=== PATIENT | female | born 1935 | race American Indian/Alaskan Native ===

== ENCOUNTER 2016-09-06 08:53 | Inpatient (IN) | payer OTHER ==
[~2016-09-06] VITALS: Ht 154.9 cm; Wt 56.1 kg
[~2016-09-06 08:53] MED LIST: ACET-1757 PO; ALBU1.25 NEB; ALBU8.5H3 INH; ASPI325T4 PO; ATOR40TA78 PO; BISA10SU2 PR; CALC-451 PO; CALCIUM; CEFD300C37 PO; CHOL2000 PO; CIPR500T87 PO; DIPH25CA61 PO; DOXY100T PO; ETOMIDATE 20 MG/10 ML ONE; FLUT1AER INH; GUAI5SYR PO; HYDR-3138 PO; IBUP-1 PO; IPRA3AMP NPPB; LEVO25TA2 PO; LEVO50TA5 PO; LISI-170 PO; LISINOPRIL; LORA10TA62 PO; LORADINE; MAGN400T26 PO; MIDAZOLAM 1 MG/ML, 5ML ONE; MONT10TA9 PO; OMEG500C3 PO; POLY17PO5 PO; PRED20TA PO; PRED5TAB19 PO; PROM25VI5 IM; PROPOFOL 10 MG/ML, 100ML IV ONE; SUCCINYLCHOLINE 20 MG/ML, 10ML ONE; THYROID MED; VECURONIUM 10 MG ONE
[2016-09-06] MEDS ORDERED: SODIUM CHLORIDE 0.9% 1,000 ML IV ONE (09:08)
[2016-09-06] MEDS ORDERED: ALBUTEROL SULFATE 2.5MG/0.5ML ONE (09:19)
[2016-09-06] MEDS ORDERED: IPRATROPIUM 0.5 MG/2.5 ML INHA ONE (09:19)
[2016-09-06] MEDS ORDERED: methylPREDNISolone SOD SUCC 125 MG/2 ML ONE ×2 (09:21→12:50)
[2016-09-06] MEDS ORDERED: ACETAMINOPHEN 650 MG SUPP ONE (09:21)
[2016-09-06] MEDS ORDERED: SODIUM CHLORIDE 0.9% 1,000ML IVBOLUS ONE ×3 (09:30→17:30)
[2016-09-06] MEDS ORDERED: ALBUTEROL 0.5%, 20ML NPPB SCH (09:30)
[2016-09-06] MEDS ORDERED: ACETAMINOPHEN 650 MG SUPP PR ONE (09:30)
[2016-09-06] MEDS ORDERED: methylPREDNISolone SOD SUCC 125 MG/2 ML IVP ONE (09:30)
[2016-09-06] MEDS ORDERED: SODIUM CHLORIDE FLUSH 10ML SYR IVF ONE (09:30)
[2016-09-06] MEDS ORDERED: IPRATROPIUM 0.5 MG/2.5 ML INHA NPPB ONE (09:30)
[2016-09-06 09:57] LABS: ASPARTATE AMINO TRANSFERASE 35 U/L (15-37); BLOOD UREA NITROGEN 15 mg/dL (7-18)
[2016-09-06] MEDS ORDERED: ALBUTEROL SULFATE 2.5 MG/3 ML NPPB SCH (10:00)
[2016-09-06] MEDS ORDERED: CEFTRIAXONE PMX 1GM/50ML 50 ML IV ONE (10:00)
[2016-09-06] MEDS ORDERED: ALBUTEROL SULFATE 2.5 MG/3 ML NPPB PRN (10:00)
[2016-09-06 10:04] LABS: IS PT STATUS REG ER OR PRE ER? YES
[2016-09-06 10:11] LABS: ABG COLLECTION SITE RIGHT RADIAL; COLLATERAL CIRCULATION TESTING NORMAL
[2016-09-06] MEDS ORDERED: MONT10TA9 PO (10:31)
[2016-09-06] MEDS ORDERED: CEFU250T66 PO (10:31)
[2016-09-06] MEDS ORDERED: CALC-451 PO (10:31)
[2016-09-06] MEDS ORDERED: MAGN400T36 PO (10:31)
[2016-09-06] MEDS ORDERED: LISI-167 PO (10:31)
[2016-09-06] MEDS ORDERED: OMEG1CAP23 PO (10:32)
[2016-09-06] MEDS ORDERED: CEFTRIAXONE PMX 1GM/50ML 50 ML ONE (10:35)
[2016-09-06 11:21] LABS: ABG COLLECTION SITE LEFT RADIAL; COLLATERAL CIRCULATION TESTING NORMAL
[2016-09-06] MEDS ORDERED: SUCCINYLCHOLINE 20 MG/ML, 10ML IVPush ONE (12:00)
[2016-09-06] MEDS ORDERED: ETOMIDATE 20 MG/10 ML IV ONE (12:00)
[2016-09-06] MEDS: PROPOFOL 100 ML IV PRN (12:04)
[2016-09-06] MEDS: ALBUTEROL/IPRATROPIUM 2.5MG/0.5MG, 3 ML INLINE SCH ×3 (12:30→21:50)
[2016-09-06] MEDS ORDERED: ACETAMINOPHEN 650 MG/20.3 ML UDC NG PRN (12:30)
[2016-09-06] MEDS ORDERED: VECURONIUM 10 MG IVPush ONE (12:30)
[2016-09-06] MEDS ORDERED: PHARMACY MAY ADJ FOR RENAL FX MC SCH (12:30)
[2016-09-06] MEDS ORDERED: ENOXAPARIN 40 MG/0.4 ML SQ SCH (12:30)
[2016-09-06] MEDS ORDERED: BISACODYL 10 MG SUPP PR PRN (12:30)
[2016-09-06] MEDS ORDERED: PROPOFOL 100 ML IV PRN (12:30)
[2016-09-06] MEDS ORDERED: SENNA/DOCUSATE TABLET NG PRN (12:30)
[2016-09-06] MEDS ORDERED: SENNOSIDES 8.8 MG/5 ML ORAL SOL NG PRN (12:30)
[2016-09-06] MEDS ORDERED: LACTULOSE 20 GM/30 ML UDC NG PRN (12:30)
[2016-09-06] MEDS ORDERED: FAMOTIDINE 20 MG/2 ML IV SCH (12:30)
[2016-09-06] MEDS ORDERED: LIDOCAINE-MPF 1%, 2ML ENDO PRN (12:30)
[2016-09-06] MEDS ORDERED: FAMOTIDINE 20 MG/2 ML ONE (12:51)
[2016-09-06] MEDS ORDERED: ENOXAPARIN 40 MG/0.4 ML ONE (12:51)
[2016-09-06] MEDS: methylPREDNISolone SOD SUCC 125 MG/2 ML IVPush SCH ×2 (12:53→18:48)
[2016-09-06] MEDS ORDERED: POLYETHYLENE GLYCOL 17 GM PACKET PO PRN (13:00)
[2016-09-06] MEDS: SODIUM CHLORIDE 0.9% 1,000 ML IV SCH ×2 (16:14→18:20)
[2016-09-06 17:15] VITALS: BP 95/40
[2016-09-06] MEDS: FAMOTIDINE 20 MG/2 ML IVPush SCH (21:57)
[2016-09-07] MEDS: methylPREDNISolone SOD SUCC 125 MG/2 ML IVPush SCH ×4 (01:04→20:23)
[2016-09-07] MEDS: ALBUTEROL/IPRATROPIUM 2.5MG/0.5MG, 3 ML INLINE SCH ×5 (01:22→22:00)
[2016-09-07 04:00] VITALS: BP 126/64
[2016-09-07 04:21] LABS: ABG COLLECTION SITE LEFT RADIAL; COLLATERAL CIRCULATION TESTING NORMAL
[2016-09-07 05:36] LABS: BLOOD UREA NITROGEN 22 mg/dL (7-18)
[2016-09-07 05:48] LABS: ASPARTATE AMINO TRANSFERASE 46 U/L (15-37)
[2016-09-07] MEDS: PROPOFOL 100 ML IV PRN (06:24)
[2016-09-07 06:29] LABS: DIFF TOTAL CELLS COUNTED 100 CELL DIFF
[2016-09-07 06:31] LABS: VERIFY COUNTS? YES
[2016-09-07 06:34] LABS: LARGE PLATELETS 1+
[2016-09-07] MEDS: FAMOTIDINE 20 MG/2 ML IVPush SCH ×2 (08:57→20:23)
[2016-09-07] MEDS: SODIUM CHLORIDE 0.9% 1,000 ML IV SCH ×2 (08:57→20:25)
[2016-09-07] MEDS: FONDAPARINUX 2.5 MG/0.5 ML SQ SCH (08:58)
[2016-09-07] MEDS ORDERED: LEVOTHYROXINE 50 MCG TABLET PO SCH (09:00)
[2016-09-07] MEDS ORDERED: MAGNESIUM SULFATE PMX 2GM/50ML 50 ML IVPB ONE (09:00)
[2016-09-07] MEDS ORDERED: CEFTRIAXONE 1,000 MG in DEXTROSE 5% 50 ML IV SCH (10:00)
[2016-09-07] MEDS: AZITHROMYCIN 500 MG in SODIUM CHLORIDE 0.9% 250 ML IV SCH (12:59)
[2016-09-08] MEDS: methylPREDNISolone SOD SUCC 125 MG/2 ML IVPush SCH ×4 (01:00→19:36)
[2016-09-08] MEDS: ALBUTEROL/IPRATROPIUM 2.5MG/0.5MG, 3 ML INLINE SCH ×2 (02:10→05:41)
[2016-09-08 04:28] LABS: ABG COLLECTION SITE LEFT RADIAL; COLLATERAL CIRCULATION TESTING NORMAL
[2016-09-08 05:28] LABS: BLOOD UREA NITROGEN 26 mg/dL (7-18)
[2016-09-08] MEDS: SODIUM CHLORIDE 0.9% 1,000 ML IV SCH (06:45)
[2016-09-08] MEDS: FONDAPARINUX 2.5 MG/0.5 ML SQ SCH (08:57)
[2016-09-08] MEDS: LEVOTHYROXINE 25 MCG TABLET PO SCH (08:57)
[2016-09-08] MEDS ORDERED: ALBUTEROL/IPRATROPIUM 2.5MG/0.5MG, 3 ML NPPB PRN (10:00)
[2016-09-08] MEDS: ALBUTEROL/IPRATROPIUM 2.5MG/0.5MG, 3 ML NPPB SCH ×3 (10:25→20:17)
[2016-09-08] MEDS: CEFTRIAXONE PMX 1GM/50ML 50 ML IV SCH (10:38)
[2016-09-08] MEDS: PANTOPRAZOLE 40 MG IV IVPush SCH (10:38)
[2016-09-08] MEDS: AZITHROMYCIN 500 MG in SODIUM CHLORIDE 0.9% 250 ML IV SCH (12:11)
[2016-09-08] MEDS ORDERED: FUROSEMIDE 20 MG/2 ML IV ONE (19:00)
[2016-09-09] MEDS: methylPREDNISolone SOD SUCC 125 MG/2 ML IVPush SCH ×3 (01:23→19:32)
[2016-09-09 04:35] LABS: ABG COLLECTION SITE RIGHT RADIAL; COLLATERAL CIRCULATION TESTING NORMAL
[2016-09-09 05:35] LABS: BLOOD UREA NITROGEN 28 mg/dL (7-18)
[2016-09-09] MEDS: LEVOTHYROXINE 25 MCG TABLET PO SCH (06:31)
[2016-09-09] MEDS: ALBUTEROL/IPRATROPIUM 2.5MG/0.5MG, 3 ML NPPB SCH ×4 (06:47→20:29)
[2016-09-09] MEDS: PANTOPRAZOLE 40 MG IV IVPush SCH (07:53)
[2016-09-09] MEDS: CEFTRIAXONE PMX 1GM/50ML 50 ML IV SCH (10:43)
[2016-09-09] MEDS: FONDAPARINUX 2.5 MG/0.5 ML SQ SCH (11:20)
[2016-09-09] MEDS: AZITHROMYCIN 500 MG in SODIUM CHLORIDE 0.9% 250 ML IV SCH (11:21)
[2016-09-09 14:46] VITALS: BP 149/69
[2016-09-09 19:27] VITALS: BP 161/70
[2016-09-09 19:28] VITALS: BP 161/70
[2016-09-10] VITALS (7 sets, daily range): BP systolic 145–168; BP diastolic 67–81
[2016-09-10] MEDS: LABETALOL 5MG/ML, 20ML IVPush PRN ×2 (01:52→08:10)
[2016-09-10 05:32] LABS: BLOOD UREA NITROGEN 22 mg/dL (7-18)
[2016-09-10] MEDS: LEVOTHYROXINE 25 MCG TABLET PO SCH (06:00)
[2016-09-10] MEDS: ALBUTEROL/IPRATROPIUM 2.5MG/0.5MG, 3 ML NPPB SCH ×4 (07:06→18:42)
[2016-09-10] MEDS: FONDAPARINUX 2.5 MG/0.5 ML SQ SCH ×2 (08:10→11:20)
[2016-09-10] MEDS: methylPREDNISolone SOD SUCC 125 MG/2 ML IVPush SCH ×2 (08:10→20:40)
[2016-09-10] MEDS: CEFTRIAXONE PMX 1GM/50ML 50 ML IV SCH (10:22)
[2016-09-10] MEDS: AZITHROMYCIN 500 MG in SODIUM CHLORIDE 0.9% 250 ML IV SCH (11:19)
[2016-09-10] MEDS: LISINOPRIL 10 MG TABLET PO SCH (14:40)
[2016-09-10] MEDS: FLUTICASONE/VILANTEROL 100-25MCG/INH INH SCH (14:40)
[2016-09-10] MEDS ORDERED: MONTELUKAST 10 MG TABLET PO SCH (21:00)
[2016-09-11 00:54] VITALS: BP 148/78
[2016-09-11 05:34] LABS: BLOOD UREA NITROGEN 21 mg/dL (7-18)
[2016-09-11] MEDS: LEVOTHYROXINE 25 MCG TABLET PO SCH (06:06)
[2016-09-11] MEDS: ALBUTEROL/IPRATROPIUM 2.5MG/0.5MG, 3 ML NPPB SCH ×2 (06:58→10:17)
[2016-09-11 07:41] VITALS: BP 171/63
[2016-09-11] MEDS: FLUTICASONE/VILANTEROL 100-25MCG/INH INH SCH (09:00)
[2016-09-11] MEDS: CEFTRIAXONE PMX 1GM/50ML 50 ML IV SCH (09:24)
[2016-09-11] MEDS: methylPREDNISolone SOD SUCC 125 MG/2 ML IVPush SCH (09:25)
[2016-09-11] MEDS: LISINOPRIL 10 MG TABLET PO SCH (09:25)
[2016-09-11] MEDS: FONDAPARINUX 2.5 MG/0.5 ML SQ SCH (09:29)
[2016-09-11] MEDS: AZITHROMYCIN 500 MG in SODIUM CHLORIDE 0.9% 250 ML IV SCH (11:50)
[2016-09-11 12:52] VITALS: BP 158/73
[2016-09-11] MEDS ORDERED: CEFD300C37 PO (13:08)
== END 2016-09-11 18:24 | disposition home or self-care (01) | DRG 208 ==
LOC: ED 10:25 → EDIP 12:33 → ICU 16:47 → CCU 09-08 17:34 → 3NE 09-09 14:30
PROVIDERS: ADMIT Hospitalist; ATTEND Hospitalist
PROC: 0T9B70Z Drainage of Bladder with Drainage Device, Via Natural or Artificial Opening (ICD-10-PCS; principal; 2016-09-06)
PROC: 5A1945Z Respiratory Ventilation, 24-96 Consecutive Hours (ICD-10-PCS; 2016-09-06)
PROC: 0BH17EZ Insertion of Endotracheal Airway into Trachea, Via Natural or Artificial Opening (ICD-10-PCS; 2016-09-06)
PROC: 02HV33Z Insertion of Infusion Device into Superior Vena Cava, Percutaneous Approach (ICD-10-PCS; 2016-09-06)
PROC: B548ZZA Ultrasonography of Superior Vena Cava, Guidance (ICD-10-PCS; 2016-09-06)
DX: J96.21 Acute and chronic respiratory failure with hypoxia (principal); J44.1 Chronic obstructive pulmonary disease with (acute) exacerbation; E87.2 Acidosis; D68.69 Other thrombophilia; E87.1 Hypo-osmolality and hyponatremia; I50.30 Unspecified diastolic (congestive) heart failure; Z99.11 Dependence on respirator [ventilator] status; J44.0 Chronic obstructive pulmonary disease with (acute) lower respiratory infection; I25.10 Atherosclerotic heart disease of native coronary artery without angina pectoris; J96.22 Acute and chronic respiratory failure with hypercapnia; D69.6 Thrombocytopenia, unspecified; E03.9 Hypothyroidism, unspecified; I11.0 Hypertensive heart disease with heart failure; I48.0 Paroxysmal atrial fibrillation; Z87.01 Personal history of pneumonia (recurrent); Z87.891 Personal history of nicotine dependence; I25.2 Old myocardial infarction; Z90.710 Acquired absence of both cervix and uterus; Z99.81 Dependence on supplemental oxygen; Z88.8 Allergy status to other drugs, medicaments and biological substances; Z79.899 Other long term (current) drug therapy; J20.9 Acute bronchitis, unspecified
CPT/HCPCS: 31500; 36415; 36569; 36600; 71010; 76937; 77001; 80048; 80053; 81001; 82803; 83605; 83735; 83880; 84443; 84478; 84484; 85025; 85610; 87040; 87070; 87081; 87205; 93005; 94002; 94003; 94150; 94640; 94644; 94660; 96361; 96365; 96372; 96375; J0456; J0696; J1650; J2250; J2704; J7620; J7644; C1751; C9113; J0330; J1652; J1940; J2930; J3475; J7030; J7050; S0028

== ENCOUNTER 2017-12-28 22:37 | Emergency (ER) | payer OTHER ==
[~2017-12-28] VITALS: Ht 157.5 cm; Wt 54.4 kg
[~2017-12-28 22:37] MED LIST changes: -ALBU8.5H3 INH; +ALBU8.5H8 INH; +ASPI325T17 PO; -ASPI325T4 PO; +CEFU250T66 PO; -ETOMIDATE 20 MG/10 ML ONE; -HYDR-3138 PO; +HYDR-3237 PO; -IBUP-1 PO; +IBUP-11 PO; -IPRA3AMP NPPB; +IPRA3AMP30 NPPB; +LISI-167 PO; +MAGN400T36 PO; -MIDAZOLAM 1 MG/ML, 5ML ONE; +OMEG1CAP23 PO; -PROPOFOL 10 MG/ML, 100ML IV ONE; -SUCCINYLCHOLINE 20 MG/ML, 10ML ONE; -VECURONIUM 10 MG ONE
[2017-12-28] MEDS ORDERED: SODIUM CHLORIDE 0.9% 1,000ML IVBOLUS ONE (23:00)
[2017-12-28] MEDS ORDERED: SODIUM CHLORIDE FLUSH 10ML SYR IVF ONE (23:00)
[2017-12-28] MEDS ORDERED: KETOROLAC 30 MG/1 ML IVPush ONE (23:30)
[2017-12-28] MEDS ORDERED: LIDOCAINE 2%, 20ML INFIL ONE (23:30)
[2017-12-28 23:41] LABS: BASOPHILS # (AUTO) 0.03 x10^3/uL (0-0.1); BASOPHILS % (AUTO) 0 % (0-1); EOSINOPHILS # (AUTO) 0.56 x10^3/uL (0-0.4); EOSINOPHILS % (AUTO) 6 % (1-7); HCT (SEDRATE) 43.6 % (34.6-47.8); LYMPHOCYTES # (AUTO) 3.46 x10^3/uL (1-3.4); LYMPHOCYTES % (AUTO) 36 % (22-44); MD NO; MEAN CORPUSCULAR HEMOGLOBIN 30.6 pg (27.0-34.8); MEAN CORPUSCULAR HGB CONC 33.2 g/dL (32.4-35.8); MEAN CORPUSCULAR VOLUME 92.1 fL (80-100); MONOCYTES # (AUTO) 0.72 x10^3/uL (0.2-0.8); MONOCYTES % (AUTO) 7 % (2-9); NEUTROPHILS # (AUTO) 4.92 x10^3/uL (1.8-6.8); NEUTROPHILS % (AUTO) 51 % (42-75); PLATELET COUNT 270 x10^3/uL (130-400); RED BLOOD COUNT 4.73 x10^6/uL (3.82-5.3); RED CELL DISTRIBUTION WIDTH 15.1 % (9.6-15.2)
[2017-12-28] MEDS ORDERED: KETOROLAC 30 MG/1 ML ONE (23:47)
[2017-12-28] MEDS ORDERED: LIDOCAINE-MPF 2% ,5ML ONE (23:47)
[2017-12-28 23:51] LABS: ALBUMIN 2.8 g/dL (3.4-5.0); ANION GAP 7 mmol/L (5-15); CALCIUM 8.5 mg/dL (8.5-10.1); CHLORIDE 102 mmol/L (98-107)
[2017-12-29 03:25] VITALS: BP 129/54
== END 2017-12-29 03:28 | disposition home or self-care (01) ==
LOC: ED 12-29 02:35
DX: M25.062 Hemarthrosis, left knee (principal); I48.91 Unspecified atrial fibrillation; E03.9 Hypothyroidism, unspecified; I11.0 Hypertensive heart disease with heart failure; I50.9 Heart failure, unspecified; I25.2 Old myocardial infarction; Z87.891 Personal history of nicotine dependence
CPT/HCPCS: 20610; 36415; 71045; 73564; 80048; 82040; 82945; 84157; 84550; 84560; 85025; 85651; 85810; 86141; 87070; 87205; 89050; 89060; 96374; 99285; J1885; J7030